=== PATIENT | male | born 1995 | race Two or more races ===

== ENCOUNTER 2019-10-10 02:33 | Emergency (ER) | payer SELFPAY ==
[~2019-10-10] VITALS: Ht 172.7 cm; Wt 83.9 kg
[2019-10-10 03:10] LABS: Basophils # (auto) 0 uL; Basophils % (auto) 0.2 % (0.0-2.0); Eosinophils # (auto) 0 uL; Eosinophils % (auto) 0.2 % (0.0-7.0); Hematocrit 47.7 % (41.0-53.0); Hemoglobin 16.7 g/dL (13.5-17.5); Lymphocytes # (auto) 1.7 uL; Lymphocytes % (auto) 13.3 % (10.0-50.0); Mean Corpuscular Hemoglobin 31.1 pg (28.0-32.0); Mean Corpuscular Volume 89.1 fL (80.0-100.0); Monocytes # (auto) 0.6 uL; Monocytes % (auto) 4.7 % (0.0-12.0); Neutrophils # (auto) 10.2 uL; Neutrophils % (auto) 81.6 % (37.0-80.0); Platelet Count (auto) 202 10^3/uL (140-450); Red Blood Cells 5.36 10^6/uL (4.5-5.90); White Blood Cell 12.5 10^3/uL (4.4-10.8)
[2019-10-10 03:22] LABS: Urine Bacteria FEW /hpf (None Seen); Urine Blood 3+ /uL (Negative); Urine Mucus FEW (None Seen); Urine Specific Gravity 1.028 (1.001-1.035); Urine WBC 4 /hpf (0 - 3)
[2019-10-10 03:31] LABS: Albumin 4.6 g/dL (3.4-5.0); Calcium 9.5 mg/dL (8.5-10.1); Potassium 3.4 mmol/L (3.5-5.1)
[2019-10-10 03:36] LABS: BUN/Creatinine Ratio 13.4; Bilirubin, Total 1.8 mg/dL (0.2-1.0); Total Protein 7.3 g/dL (6.4-8.2)
[2019-10-10 05:00] VITALS: BP 134/74
[2019-10-10] MEDS ORDERED: HYDROmorphone HCL 2 MG/ML VL IV ONE (06:00)
[2019-10-10] MEDS ORDERED: KETOROLAC TROMETH 30 MG/ML 1ML VIAL IV ONE (06:00)
[2019-10-10] MEDS ORDERED: ONDANSETRON HCL 4 MG/2 ML VIAL IV ONE (06:00)
== END 2019-10-10 07:00 | disposition home or self-care (01) ==
LOC: ER 02:37
DX: N20.0 Calculus of kidney (principal)
CPT/HCPCS: 36415; 74176; 80053; 81001; 82150; 83690; 85025; 96374; 96375; 99284; J1170; J1885; J2405

== ENCOUNTER 2023-08-28 23:09 | Emergency (ER) | payer MEDICAID ==
[~2023-08-28] VITALS: Ht 172.7 cm; Wt 76.3 kg
[2023-08-28 23:15] VITALS: BP 121/60; PULSE 107; RESP 16; O2SAT 97
[2023-08-28] MEDS ORDERED: DIPH25CA66 PO (23:52)
[2023-08-28] MEDS ORDERED: PRED20TA2 PO (23:52)
[2023-08-28] MEDS ORDERED: FAMO20TA10 PO (23:52)
[2023-08-29] MEDS ORDERED: FAMOTIDINE 20 MG TAB PO ONE
[2023-08-29] MEDS ORDERED: diphenhdrAMINE HCL 50 MG/1 ML VL IM ONE
[2023-08-29] MEDS ORDERED: DexAMETHasone SOD PHOS 10MG/1ML VIAL INJ IM ONE
== END 2023-08-29 00:10 | disposition home or self-care (01) ==
LOC: ER 23:09
DX: T78.40XA Allergy, unspecified, initial encounter (principal); F10.10 Alcohol abuse, uncomplicated; X58.XXXA Exposure to other specified factors, initial encounter